=== PATIENT | male | born 1970 | race African-American/Black ===

== ENCOUNTER 2018-06-13 17:27 | Emergency (ER) | payer SELFPAY ==
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
== END 2018-06-13 19:52 | disposition home or self-care (01) ==
LOC: ER 17:27
DX: S13.4XXA Sprain of ligaments of cervical spine, initial encounter (principal); S09.90XA Unspecified injury of head, initial encounter; G89.11 Acute pain due to trauma; V49.50XA Passenger injured in collision with unspecified motor vehicles in traffic accident, initial encounter; Y93.I9 Activity, other involving external motion; Y92.410 Unspecified street and highway as the place of occurrence of the external cause
CPT/HCPCS: 70450; 72125; 99284